=== PATIENT | male | born 1935 | race Caucasian/White ===

== ENCOUNTER 2016-11-09 13:48 | Emergency (ER) | payer OTHER ==
[~2016-11-09] VITALS: Ht 170.2 cm; Wt 73.0 kg
[2016-11-09 15:31] VITALS: BP 112/87
== END 2016-11-09 15:31 | disposition home or self-care (01) ==
LOC: EME 13:48
DX: S80.811A Abrasion, right lower leg, initial encounter (principal); S80.11XA Contusion of right lower leg, initial encounter; V49.50XA Passenger injured in collision with unspecified motor vehicles in traffic accident, initial encounter; I10 Essential (primary) hypertension; E78.5 Hyperlipidemia, unspecified; I48.91 Unspecified atrial fibrillation; Z79.01 Long term (current) use of anticoagulants
CPT/HCPCS: 73590; 99281; 99284